=== PATIENT | female | born 1945 | race Caucasian/White ===

== ENCOUNTER 2024-02-19 19:56 | Emergency (ER) | payer OTHER ==
[~2024-02-19] VITALS: Ht 157.5 cm; Wt 65.8 kg
--- NOTE | 2024-02-19 20:00 | NUR ---
COVID, FLU AND STREP SWABS COLLECTED AND SENT
--- NOTE | 2024-02-19 20:19 | ERN ---
ED Note History of Present Illness Stated Complaint: COUGH Chief Complaint: Cough Time Seen by MD: 20:01 Dictation: Patient comes in because of cough congestion runny nose. No chest pain or shortness of breath Allergies: Coded Allergies: cephalexin (Unverified Allergy, Unknown, 02/19/24) Past Medical History Past Medical History: Hypertension Surgical History: Other Surgical History Other: LEFT OVERY Review of System Dictation Constitutional: Negative for fever,chills, and weight loss Eyes: Negative for injury, pain,redness, and discharge ENT: Negative for injury,pain or swelling Cardiovascular: Negative for chest pain, palpitations, and edema Respiratory: Cough congestion runny nose Abdomen/GI: Negative for abdominal pain, nausea, vomiting, diarrhea, and cons tipation Back: Negative for injury and pain : Negative for injury, bleeding and discharge MS/Extremity: Negative for injury and deformity Skin: Negative for rash, and discoloration Neuro: Negative for headache, weakness, numbness, tingling, and seizure Psych: Negative for suicide ideation, homicidal ideation, and hallucinations Initial Vital Sign VS Vital Signs Date Time Temp Pulse Resp B/P (MAP) Pulse Ox O2 Delivery O2 Flow Rate FiO2 02/19/24 19:57 97.7 87 16 153/89 97 Room Air 02/19/24 23:04 0 21 Physical Exam Dictation General: awake, alert, NAD Head/Face: Normocephalic, atraumatic Eyes: PERRL, EOMI, vision at baseline ENT: oral cavity clear, TMs clear, no signs of infection Neck: Trachea midline, supple, no nuchal rigidity Cardiovascular: RRR, normal S1/S2, No MRGs, no JVD Respiratory: CTAB, no respiratory distress, No rales or wheezes Abdomen: Soft, non-tender, non-distended, normal bowel sounds, no guarding or rebound. Skin: Warm, dry, normal turgor, no rash MS/Extremity: Pulses equal, no cyanosis, neurovascular intact, FROM Neuro: COAx4, GCS 15, strength 5/5, CN 2-12 intact, normal cerebellar exam, normal gait, Psych: Normal behavior, mood, and affect normal Patient is able to ambulate. To and through the triage by herself without difficulty. Results (Laboratory/Radiology) Laboratory/Radiology Laboratory Tests Test 02/19/24 20:10 02/19/24 22:26 Influenza Type A Antigen Negative For Type A Influenza Type B Antigen Negative For Type B SARS-CoV-2, RNA, NAAT NEGATIVE SARS CoV-2 Group A Streptococcus Rapid positive (NEGATIVE) *A White Blood Count 6.3 K/uL (4.8-10.8) Red Blood Count 4.42 MIL/uL (4.00-5.50) Hemoglobin 14.6 g/dL (12.0-16.0) Hematocrit 42.6 % (36-48) Mean Corpuscular Volume 96.4 fL (79-99) Mean Corpuscular Hemoglobin 33.0 pg (27.0-33.0) Mean Corpuscular Hemoglobin Concent 34.3 g/dL (32.0-36.0) Red Cell Distribution Width 12.7 % (11.0-15.5) Platelet Count 215 K/uL (130-400) Mean Platelet Volume 9.4 fL (7.5-10.5) Immature Granulocyte % (Auto) 0.2 % (0-1) Neutrophils (%) (Auto) 37.7 % (40.0-77.0) L Lymphocytes (%) (Auto) 49.2 % (21.0-51.0) Monocytes (%) (Auto) 9.7 % (3.0-13.0) Eosinophils (%) (Auto) 2.7 % (0.0-8.0) Basophils (%) (Auto) 0.5 % (0.0-5.0) Neutrophils # (Auto) 2.4 K/uL (1.8-7.7) Lymphocytes # (Auto) 3.1 K/uL (1.0-4.8) Monocytes # (Auto) 0.6 K/uL (0.1-1.0) Eosinophils # (Auto) 0.17 K/uL (0.00-0.70) Basophils # (Auto) 0.03 K/uL (0.00-0.20) Absolute Immature Granulocyte (auto 0.01 K/uL (0-1) Nucleated Red Blood Cells 0.0 % (0.0-0.19) Sodium Level 138 mmol/L (136-145) Potassium Level 4.2 mmol/L (3.5-5.1) Chloride Level 98 mmol/L (101-111) L Carbon Dioxide Level 29 mmol/L (21-32) Blood Urea Nitrogen 11 mg/dL (7-18) Creatinine 1.1 mg/dL (0.5-1.0) H Glomerular Filtration Rate Calc 52 mL/min (>90) Random Glucose 118 mg/dL (70-105) H Total Calcium 9.8 mg/dL (8.5-10.1) Magnesium Level 2.10 mg/dL (1.80-2.40) Troponin I High Sensitivity < 4 ng/L (4-50) L ED Course ED Course Orders Procedure Category Date Status Time Chest 1vw RAD 02/19/24 Resulted 19:58 Covid Rna Naat LAB 02/19/24 Complete 19:58 Influenza Type A & B, LAB 02/19/24 Complete Rapid 19:58 Rapid (Group A Strep) LAB 02/19/24 Complete 19:58 Cbc With Differential LAB 02/19/24 Complete 19:58 Basic Metabolic Panel LAB 02/19/24 Complete 19:58 Troponin I High LAB 02/19/24 Complete Sensitivity 19:58 12 Lead Ekg Tracing- EKG 02/19/24 Logged Technical 19:58 Magnesium LAB 02/19/24 Complete 19:58 Vital Signs Date Time Temp Pulse Resp B/P (MAP) Pulse Ox O2 Delivery O2 Flow Rate FiO2 02/19/24 23:04 97.9 82 18 127/88 97 Room Air* 0 21 02/19/24 19:57 97.7 87 16 153/89 97 Room Air Medical Decision Making MDM Likely bronchitis given her age labs tests imaging. And told her we will give some antibiotics for just one do some labs test imaging stress high-risk make sure she does not eat a come to the hospital she was agreement with this DX & DISP Disposition: Discharge Departure Impression: Primary Impression: Cough Condition: Stable Scripts Doxycycline Hyclate (Doxycycline Hyclate) 20 Mg Tablet 1 TAB PO BID for 10 Days, #20 TAB 0 Refills Prov: RHINA MARTINEZ MD 02/19/24 RHINA MARTINEZ MD Feb 19, 2024 20:19
[2024-02-19 20:30] LABS: SARS-CoV-2, RNA, NAAT NEGATIVE SARS CoV-2 (NEGATIVE)
[2024-02-19 20:40] LABS: INFLUENZA TYPE A Negative For Type A (NEGATIVE); INFLUENZA TYPE B Negative For Type B (NEGATIVE)
--- NOTE | 2024-02-19 20:40 | HMCIMG ---
CHEST 1VW HISTORY: Cough COMPARISON: None FINDINGS: A frontal projection of the chest was obtained. No acute pulmonary infiltrates is seen. The heart is normal in size. Prominent interstitial markings are seen. Degenerative changes are seen. No evidence of aortic calcification is seen. IMPRESSION: 1. No acute pulmonary infiltrate is seen.
[2024-02-19 21:15] LABS: RAPID GROUP A STREP positive (NEGATIVE)
[2024-02-19 22:35] LABS: BASOPHILS # (AUTO) 0.03 K/uL (0.00-0.20); BASOPHILS % (AUTO) 0.5 % (0.0-5.0); EOSINOPHILS # (AUTO) 0.17 K/uL (0.00-0.70); EOSINOPHILS % (AUTO) 2.7 % (0.0-8.0); HEMATOCRIT 42.6 % (36-48); IMMATURE GRANULOCYTE ABSOLUTE 0.01 K/uL (0-1); LYMPHOCYTES # (AUTO) 3.1 K/uL (1.0-4.8); LYMPHOCYTES % (AUTO) 49.2 % (21.0-51.0); MEAN CORPUSCULAR HGB CONC 34.3 g/dL (32.0-36.0); MEAN CORPUSCULAR VOLUME 96.4 fL (79-99); MONOCYTES # (AUTO) 0.6 K/uL (0.1-1.0); MONOCYTES % (AUTO) 9.7 % (3.0-13.0); NEUTROPHILS # (AUTO) 2.4 K/uL (1.8-7.7); NEUTROPHILS % (AUTO) 37.7 % (40.0-77.0); PLATELET COUNT (AUTO) 215 K/uL (130-400); RED BLOOD CELL COUNT(AUTO) 4.42 MIL/uL (4.00-5.50); RED CELL DISTRIBUTION WIDTH 12.7 % (11.0-15.5); WHITE BLOOD COUNT (AUTO) 6.3 K/uL (4.8-10.8)
[2024-02-19 22:58] LABS: CREATININE 1.1 mg/dL (0.5-1.0); MAGNESIUM 2.1 mg/dL (1.80-2.40); POTASSIUM 4.2 mmol/L (3.5-5.1)
[2024-02-19 23:04] VITALS: BP 127/88; PULSE 82; RESP 18; TEMP 97.9; O2SAT 97
[2024-02-19] MEDS ORDERED: DOXY20TA20 PO (23:29)
--- NOTE | 2024-02-20 05:26 | EKG ---
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
== END 2024-02-19 23:46 | disposition home or self-care (01) ==
LOC: EDH 19:56
DX: R05.9 Cough, unspecified (principal); I10 Essential (primary) hypertension; Z88.1 Allergy status to other antibiotic agents; Z20.822 Contact with and (suspected) exposure to COVID-19
CPT/HCPCS: 36415; 71045; 80048; 83735; 84484; 85025; 87635; 87804; 87880; 93005; 99283